=== PATIENT | female | born 1990 | race African-American/Black ===

== ENCOUNTER 2018-02-08 09:44 | Emergency (ER) | payer MEDICAID ==
[~2018-02-08] VITALS: Ht 165.1 cm; Wt 77.1 kg
[2018-02-08] MEDS ORDERED: ONDANSETRON ODT4 MG BC (10:26)
[2018-02-08 10:36] VITALS: BP 115/79
--- NOTE | 2018-02-10 06:46 | Emergency Room Report ---
History of Present Illness General Chief Complaint: Nausea, Vomiting, and Diarrhea Source: Patient Present Illness HPI 27-year-old female presents ED for evaluation of diarrhea 1 day. States her daughter has been experiencing similar symptoms for the last 3-4 days. Denies any pain. Denies any fevers or chills. Denies nausea or vomiting. Denies recent travel or recent antibiotic use. No other aggravating relieving factors. Denies any other associated symptoms Allergies: Coded Allergies: No Known Allergies (Unverified , 02/08/18) Patient History Past Medical History: none Past Surgical History: none Pertinent Family History: none Social History: Denies: smoking, alcohol use, drug use Now: No Immunizations: UTD Reviewed Nursing Documentation: PMH: Agreed; PSxH: Agreed Nursing Documentation-PMH Past Medical History: No Stated History Review of Systems All Other Systems: negative except mentioned in HPI Physical Exam Vital Signs Date Time Temp Pulse Resp B/P (MAP) Pulse Ox O2 Delivery O2 Flow Rate FiO2 02/08/18 10:00 98.4 79 19 110/72 98 Room Air Sp02 EP Interpretation: reviewed, normal General Appearance: no apparent distress, alert, GCS 15, non-toxic Head: normocephalic, atraumatic Eyes: bilateral eye normal inspection, bilateral eye PERRL ENT: hearing grossly normal, normal pharynx, no angioedema, normal voice Neck: full range of motion, supple/symm/no masses Respiratory: chest non-tender, lungs clear, normal breath sounds, speaking full sentences Cardiovascular #1: regular rate, rhythm, no edema Cardiovascular #2: 2+ carotid (R), 2+ carotid (L), 2+ radial (R), 2+ radial (L) , 2+ dorsalis pedis (R), 2+ dorsalis pedis (L) Gastrointestinal: normal bowel sounds, non tender, soft, non-distended, no guarding, no rebound Rectal: deferred Genitourinary: normal inspection, no CVA tenderness Musculoskeletal: back normal, gait/station normal, normal range of motion, non- tender Neurologic: alert, oriented x3, responsive, motor strength/tone normal, sensory intact, speech normal Psychiatric: judgement/insight normal, memory normal, mood/affect normal, no suicidal/homicidal ideation Reflexes: 3+ bicep (R), 3+ bicep (L), 3+ tricep (R), 3+ tricep (L), 3+ knee (R) , 3+ knee (L) Skin: normal color, no rash, warm/dry, well hydrated Lymphatic: no adenopathy Medical Decision Making Diagnostic Impression: Primary Impression: Gastroenteritis ER Course Hospital Course 27-year-old M presents to ED with diarrhea differential diagnosis: gastritis, SBO, cholecystits, gastroenteritis Clinical course Patient placed on stretcher. 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 After initial history, exam reveals female in no acute distress. Abdomen soft. No guarding or rebound. No rash or petechiae. mucus membranes are moist and pink. Vital stable. No clinical signs of dehydration findings consistent with gastroenteritis. Discussed findings with patient. Given close contact of daughter with similar symptoms reassurance given. Viral course is self-limited. Recommend adequate hydration. Close follow-up with PMD for patient and daughter I feel this is a highly complex case requiring extensive working including EKG/ Rhythm strip, Xray/CT/US, Blood/urine lab work, repeat exams while in ED, and administration of strong opiates/narcotics for pain control, admission to hospital or close patient follow up. Diagnosis - gastroenteritis Stable and discharged to home. Followup with PMD. Return to ED if symptoms recur or worsen Last Vital Signs Date Time Temp Pulse Resp B/P (MAP) Pulse Ox O2 Delivery O2 Flow Rate FiO2 02/08/18 10:36 98.4 89 20 115/79 99 Room Air Status: improved Disposition: HOME, SELF-CARE Condition: Stable Scripts Ondansetron Odt* (ZOFRAN ODT*) 4 Mg Tab.rapdis 4 MG BC EVERY 6 HOURS PRN for Nausea & Vomiting, #20 TAB 0 Refills Prov: Leon Schaefer MD 02/08/18 Patient Instructions: Viral Gastroenteritis, Adult Leon Schaefer MD Feb 10, 2018 06:46
== END 2018-02-08 10:36 | disposition home or self-care (01) ==
LOC: EMR 10:17
DX: K52.9 Noninfective gastroenteritis and colitis, unspecified (principal)
CPT/HCPCS: 99283

== ENCOUNTER 2018-06-29 18:48 | Emergency (ER) | payer MEDICAID ==
[~2018-06-29] VITALS: Ht 165.1 cm; Wt 77.1 kg
[~2018-06-29 18:48] MED LIST: ONDANSETRON ODT4 MG BC
--- NOTE | 2018-06-29 19:11 | NUR ---
ER Nurse Note: Pt came from home c/o right earache post wisdom teeth extraction six days ago. Pt is on antibiotics and were prescribed pain medication but refuses to take them; resorts to tylenol. Pt a&ox4, VSS, no signs of distress. Pt denies ringing in ear, hearing loss. ER PA at pt side; [facility]
[2018-06-29 19:16] VITALS: BP 120/70
[2018-06-29] MEDS ORDERED: CORTISPORIN EAR10 ML RIGHT EAR (19:17)
--- NOTE | 2018-06-29 19:18 | Emergency Room Report ---
History of Present Illness General Chief Complaint: Earache Source: Patient Present Illness HPI 28-year-old female patient presents the ER complaining of right ear pain for the past 6 days. Reports pain symptoms began following wisdom tooth extraction by her dentist. States has not been speaking to her dentist since the procedure. Reports has been taking amoxicillin and Tylenol for pain. Reports Tylenol helps alleviate pain symptoms. Reports mild ear drainage. Reports using Q-tips. Denies fever, chest pain, shortness of breath. Denies tooth pain. Denies bleeding from mouth. Denies erythema or edema. Denies other aggravating or relieving factors. Allergies: Coded Allergies: No Known Allergies (Unverified , 02/08/18) Patient History Past Medical History: see triage record Last Menstrual Period: 06/28/18 Now: No Reviewed Nursing Documentation: PMH: Agreed; PSxH: Agreed Nursing Documentation-PMH Past Medical History: No Stated History Review of Systems All Other Systems: negative except mentioned in HPI Physical Exam Vital Signs Date Time Temp Pulse Resp B/P (MAP) Pulse Ox O2 Delivery O2 Flow Rate FiO2 06/29/18 19:01 98.4 51 20 120/70 100 Room Air Sp02 EP Interpretation: reviewed, normal General Appearance: well appearing, no apparent distress, alert, GCS 15, non- toxic Head: normocephalic, atraumatic Eyes: bilateral eye normal inspection, bilateral eye PERRL ENT: hearing grossly normal, normal pharynx, no angioedema, normal voice, TMs + canals normal - Left ear, uvula midline, moist mucus membranes, other - Right ear: Mild erythema, no cerumen impaction, no TM perforation, no TM erythema, edema or effusion, mild tenderness to palpation of ear canal; no mastoid tenderness palpation, edema or erythema Neck: full range of motion, no bony tend Respiratory: lungs clear, normal breath sounds, no rhonchi, no respiratory distress, no accessory muscle use, no wheezing, speaking full sentences Cardiovascular #1: regular rate, rhythm, no edema Neurologic: alert, oriented x3, responsive, motor strength/tone normal, sensory intact Psychiatric: mood/affect normal Skin: no rash Lymphatic: no adenopathy Medical Decision Making PA Attestation Dr. Morris is my supervising Physician whom patient management has been discussed with. Diagnostic Impression: Primary Impression: Otitis externa ER Course Pt presents to ED c/o ear pain. DDX considered but are not limited to rhinitis, sinusitis, otitis media, otitis externa, cellulitis, mastoiditis, cerumen impaction, referred pain from wisdom tooth extraction. Low suspicion for mastoiditis, no swelling or erythema noted posterior to ear, no TTP. VITAL SIGNS are WNL, patient is afebrile. ORDERS: none required at this time, diagnosis is clinical ED INTERVENTIONS: Mild erythema and tenderness palpation likely otitis externa. Possible referred pain from recent wisdom tooth extraction. No erythema or edema in oropharynx, no dental infection noted, no abscess, no trismus. Advised patient follow-up with primary care provider and dentist.Continue to take amoxicillin as previously instructed. Follow-up with ENT specialist. Tylenol for pain symptoms. Continue taking medications as previously instructed. Avoid swimming. do not use q-tips. ER precautions given. DISCHARGE: -Rx provided for Neomycin/polmyxin B At this time pt is stable for d/c to home. Patient resting comfortably in no acute distress, nontoxic appearing. Patient to take medications as instructed Will provide with patient care instructions and any necessary prescriptions. Care plan and follow-up instructions provided. Patient instructed to follow-up with primary care in 2-3 days. Patient questions asked and answered. ER precautions given. Patient instructed to return to ER immediately for any new or worsening of symptoms including but not limited to increasing SOB, persistent fever. - Please note that this Emergency Department Report was dictated using [employer] technology software, occasionally this can lead to erroneous entry secondary to interpretation by the dictation equipment. Last Vital Signs Date Time Temp Pulse Resp B/P (MAP) Pulse Ox O2 Delivery O2 Flow Rate FiO2 06/29/18 19:01 98.4 51 20 120/70 100 Room Air Disposition: HOME, SELF-CARE Condition: Stable Scripts Neomycin/Polymyxin B Sulf/Hc* (CORTISPORIN EAR SOLUTION*) 10 Ml Solution 4 DROP RIGHT EAR QID, #10 ML 0 Refills Prov: Trevor Davis 06/29/18 Patient Instructions: Earache, Otitis Externa, [id number] Additional Instructions: Followup with primary care provider in 3 -5 days. Request referral to ENT. Follow-up with dentist. Avoid swimming, does not use Q-tips in ear. Take medications as directed. Patient questions asked and answered. ER precautions given, patient instructed to return to ER immediately for any new or worsening of symptoms. Trevor Davis Jun 29, 2018 19:18
[2018-06-29 19:24] VITALS: BP 120/70
--- NOTE | 2018-06-29 19:27 | NUR ---
ER Nurse Note: Pt seen, treated, medically cleared by ER PA for discharge. Discharge instructions and prescriptions given with repeat verbalization by pt. Instructed pt to follow up with primary care physcian within one week. Pt a&ox4, VSS, no signs of distress. ID band removed. Pt left with all belongings, steady gait via own transporation.
== END 2018-06-29 19:25 | disposition home or self-care (01) ==
LOC: EMR 19:17
DX: H60.91 Unspecified otitis externa, right ear (principal)
CPT/HCPCS: 99282